=== PATIENT | female | born 1990 | race Caucasian/White ===

== ENCOUNTER 2016-06-29 16:27 | Outpatient (CLI) | payer MEDICAID ==
[~2016-06-29] VITALS: Ht 167.6 cm; Wt 67.9 kg
[2016-06-29 16:40] VITALS: Ht 167.6 cm; Wt 67.9 kg
[2016-06-29 16:41] VITALS: BP 130/73; PULSE 98; RESP 16
[2016-06-29] MEDS ORDERED: TERBUTALINE 1 MG/ML INJ SC ONE (17:30)
[2016-06-29] MEDS ORDERED: LACTATED RINGER'S 1,000 ML IV SCH (17:30)
--- NOTE | 2016-06-29 17:35 | RADRPT ---
PROCEDURE: US OB biophysical profile. CLINICAL INDICATION: evaluation, contractions TECHNIQUE: Multiple sonographic images of the pelvis were obtained. The images were reviewed on a PACS workstation. COMPARISON: No prior studies are available for comparison. FINDINGS: There is a single viable intrauterine gestation. Cardiac activity is present with 143 beats per min [place]. There is a vertex presentation. The placenta is anterior. There is no evidence of placental abruption. There is a normal amount of amniotic fluid with an NAMAN = 13.3 cm. Biophysical profile: movement 2/2 tone 2/2. breathing 2/2 NAMAN 2/2 Total 11/09 RPTAT: AA . IMPRESSION: Normal biophysical profile. Normal NAMAN. Physician Crow Date Time Electronically viewed and signed by Physician Crow on 06/29/2016 17:35 RA/
--- NOTE | 2016-06-29 18:52 | CONS ---
Date/Time of Note Date/Time of Note DATE: 06/29/16 TIME: 18:46 Consultation Date/Type/Reason Admit Date/Time June 29, 2069 OB triage consult Reason for Consultation This patient is a 26 years old 2 para 0 1 with EDC of July which makes her 36 weeks and follow up these. She came to triage area complaining of abdominal pain contractions and low movement She was a well-developed well-nourished lady near term in no acute Her weight was 67.9 kg height 556 inch her vital signs appear to be normal with blood pressure 130/73 pulse rate 98 respirations 17 temperature 98.6 on examination her ear nose throat appear to be normal neck was normal no neck vein distention abdomen was soft heart tone appeared to be normal with good variability and acceleration no true decelerations was visible On pelvic examination the cervix was closed about half a centimeter opening 80% effaced head with a -1 station membrane was intact Current Medications Medications (Trade) Dose Ordered Sig/Fabrice Route PRN Reason Start Time Stop Time Status Last Admin Dose Admin Lactated Ringer's (Lr) 1,000 ml @ 125 mls/hr Q8H IV 06/29/16 17:30 06/29/16 17:38 125 MLS/HR Terbutaline Sulfate (Brethine) 0.25 mg ONCE ONCE SC 06/29/16 17:30 06/29/16 17:32 DC 06/29/16 17:38 0.25 MG Hx of Present Illness Due to some scattered contractions that she had hydration was given as well as terbutaline her contractions gradually decreased and patient was able to go home in an hour Constitutional: No chills, No diaphoresis, No disoriented, No febrile, No improved, No no complaints, No other, No poor po, No requiring IVF, No requiring O2 Eyes: No discharge, No no complaints, No other, No pain, No redness, No visual change ENT: No bleeding, No congestion, No discharge, No dysphagia, No no complaints, No other, No pain, No sore throat Respiratory: No cough, No no complaints, No other, No pain, No pleuritic pain, No shortness of breath, No sputum, No wheezing Cardiovascular: No chest pain, No edema, No lightheadedness, No no complaints, No orthopenea, No other, No palpitations, No paroxysmal nocturnal dyspnea Gastrointestinal: other (As I mentioned the cervix was about 1 cm 80% effaced and -1 station), No blood, No constipation, No decreased appetite, No diarrhea, No flatus, No nausea, No no complaints, No pain, No passing stool, No vomiting Genitourinary: No bleeding, No discharge, No dysuria, No flank pain, No hematuria, No no complaints, No other Musculoskeletal: No back pain, No bone/joint pain, No neck pain, No no complaints, No other, No restricted range of motion, No swelling Skin: No bruising, No erythema, No laceration, No no complaints, No other, No pruritis, No rash, No skin lesions Neurologic: No confusion, No dizziness, No focal-weakness, No headache, No no complaints, No other, No seizure, No syncope Endocrine: No dry skin, No no complaints, No other, No polydypsia, No polyuria , No temp intolerance Social History Smoking Status: Never smoker Exam/Review of Systems Vital Signs Vitals Vital Signs Date Time Temp Pulse Resp B/P Pulse Ox O2 Delivery O2 Flow Rate FiO2 06/29/16 16:41 98.6 98 16 130/73 Medications Medications Current Medications Lactated Ringer's (Lr) 1,000 ml @ 125 mls/hr Q8H IV Last administered on t 17:38; Admin Dose 125 MLS/HR; Start 06/29/16 at 17:30 SHIRA POWELL MD Jun 29, 2016 18:52
== END 2016-06-29 18:57 | disposition home or self-care (01) ==
LOC: L-D 16:27 → OBT 16:27
PROVIDERS: ATTEND Obstetrics & Gynecology
DX: O36.8130 Decreased fetal movements, third trimester, not applicable or unspecified (principal); Z3A.36 36 weeks gestation of pregnancy
CPT/HCPCS: 76818; 96360; 96372; J3105; J7120; Z7500; G0463

== ENCOUNTER 2016-07-11 09:51 | Inpatient (IN) | payer MEDICAID ==
[~2016-07-11] VITALS: Ht 170.2 cm; Wt 69.3 kg
--- NOTE | 2016-07-11 10:54 | RADRPT ---
PROCEDURE: US OB biophysical profile. CLINICAL INDICATION: decreased movements, leaking fluid TECHNIQUE: Multiple sonographic images of the pelvis were obtained. The images were reviewed on a PACS workstation. COMPARISON: 06/29/2016 FINDINGS: There is a single viable intrauterine gestation. Cardiac activity is present with 148 beats per min [place]. There is a vertex presentation. The placenta is anterior. There is no evidence of placental abruption. There is a decreased amount of amniotic fluid with an NAMAN = 2.7 cm. Biophysical profile: movement 2/2 tone 2/2. breathing 2/2 NAMAN 0/2 Total 09/09 RPTAT: AA . IMPRESSION: Decreased biophysical profile. Oligohydramnios. . .Reji Bazzi MD, Date Time Electronically viewed and signed by .Reji Bazzi MD, on 07/11/2016 10:53 .S/
[2016-07-11] MEDS ORDERED: LACTATED RINGER'S 1,000 ML IV PRN (12:20)
[2016-07-11] MEDS ORDERED: MISOPROSTOL 200 MCG TAB PR PRN (12:30)
[2016-07-11] MEDS ORDERED: DINOPROSTONE 10 MG VAG SUPP VAG ONE (12:30)
[2016-07-11] MEDS ORDERED: OXYTOCIN 30 UNITS/LR 500 ML IV SCH ×2 (12:30)
[2016-07-11] MEDS ORDERED: METHYLERGONOVINE 0.2 MG INJ IM PRN (12:30)
[2016-07-11] MEDS ORDERED: LIDOCAINE 1% (MPF) 30 ML INJ INJ PRN (12:30)
[2016-07-11] MEDS ORDERED: CARBOPROST 250 MCG INJ IM PRN (12:30)
[2016-07-11] MEDS ORDERED: BUTORPHANOL 2 MG INJ IV PRN (12:30)
[2016-07-11] MEDS ORDERED: OXYTOCIN 30 UNITS/LR 500 ML IV PRN (12:30)
[2016-07-11] MEDS: LACTATED RINGER'S 1,000 ML IV SCH ×3 (13:54→20:10)
[2016-07-11 13:55] LABS: ADD SCAN DIFF NO
[2016-07-11 13:57] LABS: BASOPHILS % 0.2 % (0.0-2.0); EOSINOPHILS # 0.1 10^3/ul (0.0-0.5); EOSINOPHILS % 0.9 % (0.0-7.0); HEMATOCRIT 35.5 % (37.0-47.0); LYMPHOCYTES # 1.8 10^3/ul (0.8-2.9); LYMPHOCYTES % 19.3 % (15.0-51.0); MEAN CORPUSCULAR HEMOGLOBIN 30.2 pg (29.0-33.0); MEAN CORPUSCULAR HGB CONC 33.8 g/dl (32.0-37.0); MEAN CORPUSCULAR VOLUME 89.4 fl (82.0-101.0); MEAN PLATELET VOLUME 9.6 fl (7.4-10.4); MONOCYTE # 0.8 10^3/ul (0.3-0.9); MONOCYTES % 8.6 % (0.0-11.0); NEUTROPHIL # 6.5 10^3/ul (1.6-7.5); NEUTROPHILS % 70.3 % (39.0-77.0); PLATELET COUNT 317 10^3/UL (140-415); RED BLOOD COUNT 3.97 10^6/ul (4.20-5.40); RED CELL DISTRIBUTION WIDTH 12.9 % (11.5-14.5); WHITE BLOOD COUNT 9.2 10^3/ul (4.8-10.8)
[2016-07-11] MEDS ORDERED: AMPICILLIN 2 GM/NS (PMX) 100 ML IV ONE (14:00)
[2016-07-11 14:09] LABS: INR 0.93; PROTIME 12.5 Sec (12.2-14.2)
[2016-07-11 14:10] LABS: PARTIAL THROMBOPLASTIN TIME 26.9 Sec (25.0-35.0)
[2016-07-11 16:26] VITALS: Ht 170.2 cm; Wt 69.3 kg
[2016-07-11] MEDS: AMPICILLIN 1 GM/NS (PMX) 50 ML IV SCH ×2 (18:00→22:00)
[2016-07-12] MEDS: LACTATED RINGER'S 1,000 ML IV SCH ×4 (00:46→21:22)
--- NOTE | 2016-07-12 08:25 | RADRPT ---
PROCEDURE: US OB. CLINICAL INDICATION: Size and dates , labor pain, left ovarian cyst TECHNIQUE: Multiple sonographic images of the pelvis and gravid uterus were obtained. The images were reviewed on a PACS workstation. COMPARISON: 07/11/2016 FINDINGS: There is a single viable intrauterine gestation. Cardiac activity is present with 148 beats per min [place]. There is a vertex presentation. The placenta is anterior. There is no evidence for an abruption or placenta previa. Measurements were made in order to determine age. The results are as follows: BPD =9.9 cm HC =33.5 cm AC =35.2 cm FL =7.4 cm Estimated gestational age of approximately 38 weeks and 6 days based on ultrasound measurements. Clinical age: 38 weeks and 4 days. The estimated date of delivery is 07/20/16, based on ultrasound measurements. The EFW = 3614 g, 73.2%, based on LMP age. The left ovary was not visualized. RPTAT: AA IMPRESSION: Single viable intrauterine gestation of approximately 38 weeks and 6 days based on ultrasound measu rements. Left ovary not visualized. .Reji Bazzi MD, Date Time Electronically viewed and signed by .Reji Bazzi MD, on 07/12/2016 08:24 .S/
[2016-07-12] MEDS ORDERED: OXYTOCIN 30 UNITS/LR 500 ML IV SCH (12:30)
[2016-07-12] MEDS ORDERED: FENTAnyl 2MCG/ML-ROPIV 0.2% 100 ML ONE (13:05)
[2016-07-12] MEDS ORDERED: NALOXONE (0.4 MG/ML) INJ IV PRN (13:30)
[2016-07-12] MEDS: FENTAnyl 2MCG/ML-ROPIV 0.2% 100 ML BAG EPI SCH (13:37)
--- NOTE | 2016-07-12 17:30 | HP ---
Date/Time of Note Date/Time of Note DATE: 07/12/16 TIME: 17:23 OB - History Hx of Present Free Text/Dictation This is a 25 years old female 2 para 0 SAB 1 admitted to [facility] for induction of labor due to oligohydramnios with NAMAN of 27. this patient has been under the care Liam Barker woman's and in her record noted history of ovarian cyst 8.9 cm no other complication recorded in her Estimated Due Date: Jul 22, 2016 : 2 Para: 0 Spontaneous : 1 Care: Limited Care Ultrasounds: Normal mid trimester US Obstetrical Complications: None Medical Complications: None Past Family/Social History * Past Medical, Surgical, Family and Obstetric Histories reviewed from chart. Rubella: immune RPR/VDRL: Negative GBS Status: Negative HBsAG: Unknown OB Admission Exam Physical Exam HEENT: WNL Heart: Rhythm Normal Lungs: Clear, Equal Abdomen: WNL Reflexes: Normal Cervical Dilatation: 1cm Effacement: 50% Station: -2 Membranes: Intact Heart Rate: 130's Accelerations: Accelerations Present Decelerations: No Decelerations Varibility: Moderate Contractions on Admission: >10 Minutes Apart Intensity: Mild Last 72 hours Lab Results CBC & BMP 07/11/16 13:30 OB Assessment/Plan Reason for admission: induction of labor MADIE ISABEL MD Jul 12, 2016 17:30
[2016-07-13] MEDS: FENTAnyl 2MCG/ML-ROPIV 0.2% 100 ML BAG EPI SCH ×2 (03:45→10:05)
[2016-07-13] MEDS: LACTATED RINGER'S 1,000 ML IV SCH (05:27)
[2016-07-13] MEDS ORDERED: DEXTROSE 5%-LR 1,000 ML IV SCH (07:23)
[2016-07-13] MEDS ORDERED: ONDANSETRON 4 MG INJ ONE (08:49)
[2016-07-13] MEDS ORDERED: ONDANSETRON 4 MG INJ IV PRN ×2 (09:00→14:30)
[2016-07-13 09:55] LABS: ADD SCAN DIFF NO
[2016-07-13 10:00] LABS: BASOPHILS % 0.2 % (0.0-2.0); EOSINOPHILS % 0.1 % (0.0-7.0); HEMATOCRIT 37.3 % (37.0-47.0); HEMOGLOBIN 12.4 g/dl (12.0-16.0); LYMPHOCYTES # 1.1 10^3/ul (0.8-2.9); LYMPHOCYTES % 6.4 % (15.0-51.0); MEAN CORPUSCULAR HGB CONC 33.2 g/dl (32.0-37.0); MEAN CORPUSCULAR VOLUME 90.3 fl (82.0-101.0); MEAN PLATELET VOLUME 9.3 fl (7.4-10.4); MONOCYTE # 1.2 10^3/ul (0.3-0.9); MONOCYTES % 7.2 % (0.0-11.0); NEUTROPHIL # 14.2 10^3/ul (1.6-7.5); NEUTROPHILS % 85.7 % (39.0-77.0); PLATELET COUNT 263 10^3/UL (140-415); RED BLOOD COUNT 4.13 10^6/ul (4.20-5.40); RED CELL DISTRIBUTION WIDTH 13.1 % (11.5-14.5); WHITE BLOOD COUNT 16.6 10^3/ul (4.8-10.8)
[2016-07-13] MEDS ORDERED: PRENAT PO (10:06)
[2016-07-13 10:10] LABS: ALBUMIN 2.9 g/dl (3.3-4.9); ALBUMIN/GLOBULIN RATIO 0.9; BILIRUBIN,INDIRECT 0.5 mg/dl (0-1.1); BILIRUBIN,TOTAL 0.5 mg/dl (0.2-1.3); CALCIUM 8.6 mg/dl (8.4-10.2); CREATININE 0.54 mg/dl (0.44-1.00); POTASSIUM 3.5 mmol/L (3.5-5.1); TOTAL PROTEIN 6.1 g/dl (6.1-8.1); URIC ACID 6.6 mg/dl (3.1-7.9)
[2016-07-13 10:14] LABS: INR 1.02; PROTIME 13.4 Sec (12.2-14.2)
[2016-07-13] MEDS ORDERED: AMPICILLIN 2 GM/NS (PMX) 100 ML ONE (11:44)
[2016-07-13] MEDS ORDERED: AMPICILLIN 2 GM/NS (PMX) 100 ML IVPB ONE (12:00)
--- NOTE | 2016-07-13 12:39 | LDN ---
Date/Time of Note Date/Time of Note DATE: 07/13/16 TIME: 12:33 Delivery Summary Normal spontaneous vaginal delivery of a baby boy from FELIX position shoulders delivered without difficulty rest of the baby's body follow cord was clamped after stopped pulsation placenta spontaneous expulsion inspected complete patient sustained first-degree perineal laceration repaired with 3 0 and 4 0 chromic catgut estimated blood loss 200 mL Weeks of Gestation 38 weeks 4 days induction of labor due low NAMAN, patient induced with Cervidil followed with Pitocin IV drip Placenta Delivered: Spontaneously Meconium: none Episiotomy: No Perineal laceration: 1 Laceration repair: First-degree perineal laceration repaired with 3 0 and 4-0 chromic catgut Anesthesia type: Epidural Sponge & Needle done & correct: Yes All needle counts correct: Yes Any foreign bodies felt in the: No Problems: Delivery Information Sex Sex: male Apgars 1 Minute: 9 5 Minute: 9 Suctioning Nose & mouth suctioned at eh: Yes Delee suction performed: No Umbilical Cord Umbilical cord with: 3 Vessels Cord presentations: no nuchal cord Cord Blood was obtained: Yes MADIE ISABEL MD Jul 13, 2016 12:39
[2016-07-13] MEDS ORDERED: ACETAMINOPHEN 325 MG TAB PO PRN (14:30)
[2016-07-13] MEDS ORDERED: LANOLIN 7 GM TUBE TOP PRN (14:30)
[2016-07-13] MEDS ORDERED: BENZOCAINE 20% 56 ML SPRAY TOP PRN (14:30)
[2016-07-13] MEDS ORDERED: ACETAMINOPHEN/CODEINE #3 TAB PO PRN ×2 (14:30)
[2016-07-13] MEDS ORDERED: DIBUCAINE 1% 30 GM OINT PR PRN (14:30)
[2016-07-13] MEDS ORDERED: OXYCODONE/ASPIRIN (4.88/325) TAB PO PRN ×2 (14:30)
[2016-07-13] MEDS ORDERED: WITCH HAZEL/GLYCERIN PAD PR PRN (14:30)
[2016-07-13 14:40] VITALS: BP 121/67; PULSE 92; RESP 17
[2016-07-13 16:00] VITALS: BP 128/64; PULSE 95; RESP 17
[2016-07-13] MEDS: IBUPROFEN 600 MG TAB PO SCH ×2 (17:10→23:26)
[2016-07-13] MEDS: OXYTOCIN 30 UNITS/LR 500 ML IV SCH ×3 (17:33→21:12)
[2016-07-13 19:50] VITALS: BP 109/55; PULSE 86; RESP 18
[2016-07-13] MEDS: SENNA/DOCUSATE NA (8.6MG/50MG) TAB PO SCH (21:05)
[2016-07-14] VITALS: BP 106/63; PULSE 76; RESP 16
[2016-07-14 04:05] VITALS: BP 106/59; PULSE 80; RESP 18
[2016-07-14] MEDS: IBUPROFEN 600 MG TAB PO SCH ×4 (05:33→23:58)
[2016-07-14 08:00] VITALS: BP 100/59; PULSE 80; RESP 18
[2016-07-14 08:24] LABS: ADD SCAN DIFF NO
[2016-07-14 08:32] LABS: ABNORMAL IP MESSAGE 1; BASOPHILS % 0.2 % (0.0-2.0); EOSINOPHILS # 0.1 10^3/ul (0.0-0.5); EOSINOPHILS % 0.4 % (0.0-7.0); HEMATOCRIT 32.4 % (37.0-47.0); HEMOGLOBIN 10.8 g/dl (12.0-16.0); LYMPHOCYTES # 2.2 10^3/ul (0.8-2.9); LYMPHOCYTES % 10.8 % (15.0-51.0); MEAN CORPUSCULAR HGB CONC 33.3 g/dl (32.0-37.0); MEAN PLATELET VOLUME 9.7 fl (7.4-10.4); MONOCYTE # 1.8 10^3/ul (0.3-0.9); MONOCYTES % 8.8 % (0.0-11.0); NEUTROPHIL # 16.2 10^3/ul (1.6-7.5); NEUTROPHILS % 79.2 % (39.0-77.0); PLATELET COUNT 257 10^3/UL (140-415); RED CELL DISTRIBUTION WIDTH 13.4 % (11.5-14.5); WHITE BLOOD COUNT 20.5 10^3/ul (4.8-10.8)
--- NOTE | 2016-07-14 08:43 | PN ---
Date/Time of Note Date/Time of Note DATE: 07/14/16 TIME: 08:42 OB Subjective Subjective Subjective Post normal vaginal delivery day 1 Afebrile vital signs stable abdomen soft uterus firm lochia normal extremity normal. Laboratory Tests Test 07/13/16 09:40 White Blood Count 16.610^3/ul Red Blood Count 4.1310^6/ul Hemoglobin 12.4g/dl Hematocrit 37.3% Mean Corpuscular Volume 90.3fl Mean Corpuscular Hemoglobin 30.0pg Mean Corpuscular Hemoglobin Concent 33.2g/dl Red Cell Distribution Width 13.1% Platelet Count 13828^3/UL Mean Platelet Volume 9.3fl Neutrophils % 85.7% Lymphocytes % 6.4% Monocytes % 7.2% Eosinophils % 0.1% Basophils % 0.2% Nucleated Red Blood Cells % 0.0/100WBC Neutrophils # 14.210^3/ul Lymphocytes # 1.110^3/ul Monocytes # 1.210^3/ul Eosinophils # 0.010^3/ul Basophils # 0.010^3/ul Nucleated Red Blood Cells # 0.010^3/ul Prothrombin Time 13.4Sec Prothrombin Time Ratio 1.0 INR International Normalized Ratio 1.02 Activated Partial Thromboplast Time 27.0Sec Fibrinogen 512.0mg/dl Sodium Level 135mmol/L Potassium Level 3.5mmol/L Chloride Level 111mmol/L Carbon Dioxide Level 17mmol/L Anion Gap 11 Blood Urea Nitrogen 5mg/dl Creatinine 0.54mg/dl Glucose Level 213mg/dl Uric Acid 6.6mg/dl Calcium Level 8.6mg/dl Total Bilirubin 0.5mg/dl Direct Bilirubin 0.00mg/dl Indirect Bilirubin 0.5mg/dl Aspartate Amino Transf (AST/SGOT) 23IU/L Alanine Aminotransferase (ALT/SGPT) 26IU/L Alkaline Phosphatase 117IU/L Total Protein 6.1g/dl Albumin 2.9g/dl Globulin 3.20g/dl Albumin/Globulin Ratio 0.90 Current Medications Medications (Trade) Dose Ordered Sig/Fabrice Route PRN Reason Start Time Stop Time Status Last Admin Dose Admin Lactated Ringer's (Lr) 1,000 ml @ 125 mls/hr Q8H IV 07/11/16 12:24 07/13/16 14:05 DC 07/13/16 05:27 Butorphanol Tartrate (Stadol) 2 mg Q2H PRN IV PAIN 07/11/16 12:30 07/13/16 14:05 DC Lidocaine 30 ml 30 ml ONCE PRN INJ EPISIOTOMY/TEARING 07/11/16 12:30 07/13/16 14:05 DC Oxytocin/Lactated Ringer's 500 ml @ 125 mls/hr ONCE -MAY REPEAT X1 IV 07/11/16 12:30 07/13/16 14:05 DC 07/13/16 12:15 Oxytocin/Lactated Ringer's 500 ml @ 125 mls/hr ONCE IV 07/11/16 12:30 07/13/16 14:05 DC Lactated Ringer's 1,000 ml @ 2,000 mls/hr Q30M PRN IV PRE-EPIDURAL BOLUS 07/11/16 12:20 07/13/16 14:06 DC 07/12/16 08:31 Oxytocin/Lactated Ringer's 500 ml @ 0 mls/hr ONCE PRN IV For Hemorrhage Management 07/11/16 12:30 07/13/16 14:06 DC Methylergonovine Maleate (Methergine) 0.2 mg ONCE PRN IM VAGINAL BLEEDING 07/11/16 12:30 07/13/16 14:06 DC Carboprost Tromethamine (Hemabate) 250 mcg ONCE PRN IM VAGINAL BLEEDING 07/11/16 12:30 07/13/16 14:06 DC Misoprostol (Cytotec) 1,000 mcg ONCE PRN [place] VAGINAL BLEEDING 07/11/16 12:30 07/13/16 14:06 DC Dinoprostone 10 mg 10 mg ONCE ONCE VAG 07/11/16 12:30 07/11/16 12:31 DC 07/11/16 13:33 Ampicillin 100 ml @ 100 mls/hr ONCE ONCE IV 07/11/16 14:00 07/12/16 10:09 DC 07/11/16 13:54 Ampicillin 50 ml @ 100 mls/hr Q4H IV 07/11/16 18:00 07/12/16 10:09 DC Oxytocin/Lactated Ringer's 500 ml @ 0 mls/hr Q0M IV 07/12/16 12:30 07/13/16 14:06 DC 07/12/16 12:35 Fentanyl/ Ropivacaine 100 ml @ ud STK-MED ONCE .ROUTE 07/12/16 13:05 07/12/16 13:06 DC Naloxone HCl (Narcan) 0.2 mg Q2M PRN IV FOR RESP RATE 8 OR LESS 07/12/16 13:30 07/13/16 14:06 DC Fentanyl/ Ropivacaine 100 ml 100 ml EPIDURAL (PCEA) EPI 07/12/16 13:30 07/13/16 14:06 DC 07/13/16 10:05 Dextrose/Lactated Ringer's (D5-Lr) 1,000 ml @ 125 mls/hr Q8H IV 07/13/16 07:23 07/13/16 14:06 DC 07/13/16 07:45 Ondansetron HCl (Zofran Inj) 4 mg STK-MED ONCE .ROUTE 07/13/16 08:49 07/13/16 08:50 DC Ondansetron HCl 4 mg 4 mg Q4H PRN IV NAUSEA AND/OR VOMITING 07/13/16 09:00 07/13/16 14:06 DC 07/13/16 08:52 Ampicillin 100 ml @ 100 mls/hr ONCE ONCE IVPB 07/13/16 12:00 07/13/16 12:59 DC 07/13/16 11:55 Ampicillin 100 ml @ ud STK-MED ONCE .ROUTE 07/13/16 11:44 07/13/16 11:45 DC Oxytocin/Lactated Ringer's 500 ml @ 125 mls/hr Q4H IV 07/13/16 14:02 07/13/16 22:01 DC 07/13/16 21:12 Ibuprofen (Motrin) 600 mg Q6 PO 07/13/16 18:00 07/14/16 05:33 Acetaminophen (Tylenol Tab) 650 mg Q4H PRN PO PAIN LEVEL 1-5 07/13/16 14:30 Acetaminophen/ Codeine Phosphate (Tylenol No.3) 1 tab Q4H PRN PO PAIN LEVEL 1-5 07/13/16 14:30 Acetaminophen/ Codeine Phosphate (Tylenol No.3) 2 tab Q4H PRN PO PAIN LEVEL 6-10 07/13/16 14:30 Oxycodone/Aspirin (Percodan) 1 tab Q3H PRN PO PAIN LEVEL 1-5 07/13/16 14:30 07/13/16 14:13 Oxycodone/Aspirin (Percodan) 2 tab Q3H PRN PO PAIN LEVEL 6-10 07/13/16 14:30 Ondansetron HCl (Zofran Inj) 4 mg Q6H PRN IV NAUSEA AND/OR VOMITING 07/13/16 14:30 Senna/Docusate Sodium (Senokot-S) 1 tab BID PO 07/13/16 21:00 07/13/16 21:05 Witch Chiquita/ Glycerin (Tucks Pads) 1 pad BEDSIDE MEDICATION PRN [place] HEMORRHOID/EPISIOTMY PAIN 07/13/16 14:30 07/13/16 17:09 Benzocaine (Dermoplast T[place]) 1 spray BEDSIDE MEDICATION PRN TOP HEMORRHOID/EPISIOTMY PAIN 07/13/16 14:30 07/13/16 17:09 Dibucaine (Nupercainal) 1 applic BEDSIDE MEDICATION PRN [place] HEMORRHOID/EPISIOTMY PAIN 07/13/16 14:30 07/13/16 17:33 Lanolin (Pjc-W-Nldqli) 1 applic BEDSIDE MEDICATION PRN TOP BEDSIDE FOR REENA TO NIPPLES 07/13/16 14:30 07/13/16 17:10 Measles/Mumps/ Rubella Vaccine Live (Mmr Ii Vaccine) 0.5 ml ONCE ONCE SC* 07/15/16 09:00 07/15/16 09:01 MADIE ISABEL MD Jul 14, 2016 08:43
[2016-07-14] MEDS: SENNA/DOCUSATE NA (8.6MG/50MG) TAB PO SCH ×2 (09:55→21:44)
[2016-07-14 16:41] VITALS: BP 109/58; PULSE 88; RESP 17
[2016-07-14 20:00] VITALS: BP 114/66; PULSE 80; RESP 18
[2016-07-15 04:45] VITALS: BP 108/72; PULSE 76; RESP 19
[2016-07-15] MEDS: IBUPROFEN 600 MG TAB PO SCH ×2 (05:37→12:02)
[2016-07-15 08:10] VITALS: BP 110/63; PULSE 83; RESP 19
[2016-07-15] MEDS ORDERED: MEASLES,MUMPS,RUBELLA VACCINE INJ SC* ONE (09:00)
[2016-07-15] MEDS: SENNA/DOCUSATE NA (8.6MG/50MG) TAB PO SCH (09:12)
--- NOTE | 2016-07-15 09:53 | PD.PPDC ---
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
--- NOTE | 2016-07-15 09:56 | DS ---
Date/Time of Note Date/Time of Note DATE: 07/15/16 TIME: 09:54 Discharge Summary Admission/Discharge Info Admit Date/Time Jul 11, 2016 at 11:30 Discharge Date/Time July 15, 2016 at 1050 Final Diagnosis Day 2 post normal vaginal delivery Procedures Normal spontaneous vaginal delivery Hx of Present Illness Term Hospital Course Uneventful Home Meds Reported Medications Multivit/Min/Fol Ac/Iron/Pren* ( S*) 1 Tab Tab, 1 TAB PO DAILY, TAB 07/13/16 Follow-up Plan instructions given recommended appointment to the office in 2 weeks MADIE ISABEL MD Jul 15, 2016 09:56
== END 2016-07-15 14:23 | disposition home or self-care (01) | DRG 775 ==
LOC: OBT 09:51 → L-D 09:51 → OBT 11:30 → L-D 11:30 → PP1 07-13 15:05
PROVIDERS: ADMIT Obstetrics & Gynecology; ATTEND Obstetrics & Gynecology
PROC: 10E0XZZ Delivery of Products of Conception, External Approach (ICD-10-PCS; principal; 2016-07-13)
PROC: 0HQ9XZZ Repair Perineum Skin, External Approach (ICD-10-PCS; 2016-07-13)
DX: O70.0 First degree perineal laceration during delivery (principal); Z37.0 Single live birth; Z3A.38 38 weeks gestation of pregnancy
CPT/HCPCS: 62319; 76816; 76818; 80053; 84560; 85025; 85384; 85610; 85730; 86592; 86900; 86901; 99464; G0463; J0290; J2405; J2590; J3010; J7120; J7121

== ENCOUNTER 2017-05-06 18:05 | Emergency (ER) | END 2017-05-06 22:51 | disposition home or self-care (01) ==